=== PATIENT | female | born 1995 | race Two or more races ===

== ENCOUNTER 2017-07-24 20:33 | Emergency (ER) | payer MEDICAID, OTHER, SELFPAY ==
[~2017-07-24] VITALS: Ht 154.9 cm; Wt 57.2 kg
[~2017-07-24 20:33] MED LIST: PREN1TAB28 PO
[2017-07-24 21:58] LABS: ASPARTATE AMINO TRANSFERASE 18 U/L (15-37); BLOOD UREA NITROGEN 8 mg/dL (7-18)
[2017-07-24] MEDS ORDERED: RISPERIDONE 1 MG TABLET PO ONE (22:00)
[2017-07-24 22:09] LABS: HEMATOCRIT 41.7 % (34.6-47.8); HEMOGLOBIN 13.3 g/dL (11.7-16.4); WHITE BLOOD COUNT 11.2 x10^3/uL (3.4-10)
[2017-07-24 23:28] VITALS: BP 100/59
== END 2017-07-24 23:31 | disposition home or self-care (01) ==
LOC: ED 21:00
DX: O03.4 Incomplete spontaneous abortion without complication (principal); O02.0 Blighted ovum and nonhydatidiform mole
CPT/HCPCS: 36415; 76801; 80053; 81001; 84702; 85025; 86901; 87077; 87086; 87186; 99285

== ENCOUNTER 2017-07-31 02:38 | Emergency (ER) | payer MEDICAID, OTHER ==
[~2017-07-31] VITALS: Ht 154.9 cm; Wt 57.8 kg
[2017-07-31 03:33] LABS: HEMATOCRIT 38.8 % (34.6-47.8); HEMOGLOBIN 12.7 g/dL (11.7-16.4)
[2017-07-31 04:20] LABS: PATH.CAST-FLAG NOT PRESENT; SPERM-FLAG NOT PRESENT; SRC-FLAG NOT PRESENT; XTAL-FLAG NOT PRESENT; YLC-FLAG NOT PRESENT
[2017-07-31 05:25] VITALS: BP 102/67
== END 2017-07-31 05:41 | disposition home or self-care (01) ==
LOC: ED 03:49
DX: O03.9 Complete or unspecified spontaneous abortion without complication (principal)
CPT/HCPCS: 36415; 76830; 81001; 84702; 85025; 99285

== ENCOUNTER 2019-03-06 15:22 | Emergency (ER) | payer MEDICAID ==
[~2019-03-06] VITALS: Ht 154.9 cm; Wt 69.8 kg
[~2019-03-06 15:22] MED LIST changes: +PREN1TAB60 PO
[2019-03-06 15:55] LABS: MEAN CORPUSCULAR HEMOGLOBIN 29.1 pg (27.0-34.8); MEAN CORPUSCULAR HGB CONC 33.3 g/dL (32.4-35.8); MEAN CORPUSCULAR VOLUME 87.4 fL (80-100); MEAN PLATELET VOLUME 7.6 fL (7.4-10.4); PLATELET COUNT 622 x10^3/uL (130-400); RED BLOOD COUNT 4.91 x10^6/uL (3.82-5.3); RED CELL DISTRIBUTION WIDTH 16.8 % (9.6-15.2)
[2019-03-06 16:05] LABS: ALANINE AMINOTRANSFERASE 28 U/L (12-78); ALBUMIN 3.7 g/dL (3.4-5.0); ANION GAP 8 mmol/L (5-15); CALCIUM 8.8 mg/dL (8.5-10.1); CHLORIDE 105 mmol/L (98-107); CREATININE 0.76 mg/dL (0.55-1.02)
[2019-03-06 16:09] LABS: ALKALINE PHOSPHATASE 142 U/L (45-117); BILIRUBIN,TOTAL 0.4 mg/dL (0.2-1.0); TOTAL PROTEIN 8.4 g/dL (6.4-8.2)
[2019-03-06 16:33] LABS: BASOPHILS # (AUTO) 0.01 x10^3/uL (0-0.1); BASOPHILS % (AUTO) 0 % (0-1); EOSINOPHILS # (AUTO) 0.04 x10^3/uL (0-0.4); EOSINOPHILS % (AUTO) 0 % (1-7); LYMPHOCYTES # (AUTO) 2.46 x10^3/uL (1-3.4); LYMPHOCYTES % (AUTO) 13 % (22-44); MD SCAN; MONOCYTES # (AUTO) 0.42 x10^3/uL (0.2-0.8); MONOCYTES % (AUTO) 2 % (2-9); NEUTROPHILS # (AUTO) 15.91 x10^3/uL (1.8-6.8); NEUTROPHILS % (AUTO) 84 % (42-75)
[2019-03-06 16:37] LABS: MICROSCOPIC AUTO
[2019-03-06 16:42] LABS: CULTURE INDICATED? YES
[2019-03-06] MEDS ORDERED: CEFTRIAXONE PMX 1GM/50ML 50 ML IV ONE (17:30)
[2019-03-06] MEDS ORDERED: CEFTRIAXONE PMX 1GM/50ML 50 ML ONE (17:39)
[2019-03-06 18:29] VITALS: BP 118/78
--- NOTE | 2019-03-06 18:31 | NUR ---
Patient/Caregiver given discharge instructions and they have confirmed that they understand the instructions. Patient ambulatory with steady gait.
== END 2019-03-06 18:32 | disposition home or self-care (01) ==
LOC: ED 16:40
DX: N10 Acute pyelonephritis (principal); N30.01 Acute cystitis with hematuria
CPT/HCPCS: 36415; 80053; 81001; 84703; 85025; 87077; 87086; 96365; 99283; J0696